=== PATIENT | male | born 1965 | race Caucasian/White ===

== ENCOUNTER 2017-05-23 11:18 | Observation (INO) | payer OTHER ==
[~2017-05-23] VITALS: Ht 185.4 cm; Wt 123.2 kg
[~2017-05-23 11:18] MED LIST: Amoxicillin500 MG PO; CEPH500 PO; CYCL10 PO; GLIP10ER PO; HYDCHL12.5 PO; LEVEMIR FL100 UNIT/1 SC; LISI20 PO; METF500 PO; Norco 5-325 Ta1 EACH PO; Percocet 10-321 EACH PO; Percocet 5-3251 EACH PO; Valium5 MG PO
[2017-05-23 11:41] LABS: BASOPHILS ABSOLUTE AUTO 0.01 K/mm3 (0.00-0.23); BASOPHILS PERCENT AUTO 0 % (0-2); EOSINOPHILS ABSOLUTE AUTO 0.08 K/mm3 (0.00-0.68); EOSINOPHILS PERCENT AUTO 1 % (0-6); Hematocrit 46.5 % (37.0-53.0); Hemoglobin 15.2 g/dL (13.5-17.5); IMMATURE GRAN ABSOLUTE AUTO 0.02 K/mm3 (0.00-0.10); IMMATURE GRAN PERCENT AUTO 0 % (0-1); LYMPHOCYTES ABSOLUTE AUTO 0.56 K/mm3 (0.84-5.20); LYMPHOCYTES PERCENT AUTO 7 % (21-46); MONOCYTES ABSOLUTE AUTO 0.45 K/mm3 (0.16-1.47); MONOCYTES PERCENT AUTO 5 % (4-13); Mean Corpuscular HGB 29.9 pg (26.0-34.0); Mean Corpuscular HGB Conc 32.7 g/dL (31.5-36.5); Mean Corpuscular Volume 92 fL (80-100); Mean Platelet Volume 10.1 fL (9.1-12.4); NEUTROPHILS ABSOLUTE AUTO 7.23 K/mm3 (1.96-9.15); NEUTROPHILS PERCENT AUTO 87 % (41-73); Platelet Count 179 K/mm3 (150-400); RDW Coefficient Variation 13.2 % (11.7-14.2); RDW Standard Deviation 44.5 fL (35.1-46.3); Red Blood Cell Count 5.08 M/mm3 (4.30-5.90); White Blood Cell Count 8.35 K/mm3 (4.00-11.30)
[2017-05-23 12:12] LABS: Alanine Aminotransfer (ALT/SGP 47 U/L (12-78); Albumin, Blood 3.6 g/dL (3.4-5.0); Albumin/Globulin Ratio 0.9 (0.8-1.8); Alk Phos 74 U/L (50-136); Anion Gap 6 mmol/L (6-16); Aspartate Aminotrans (AST/SGOT 25 U/L (12-37); Bilirubin, Total 0.5 mg/dL (0.1-1.0); Blood Urea Nitrogen 16 mg/dL (8-24); Bun/Creatinine Ratio 20.1 (12.0-20.0); CO2, Blood 28 mmol/L (21-32); Calcium, Blood 8.5 mg/dL (8.5-10.1); Chloride, Blood 104 mmol/L (98-108); Globulin, Blood 3.9 g/dL (2.2-4.0); Glomerular Filtration Rate >60 (60-); Glucose, Blood 196 mg/dL (70-99); Potassium, Blood 4.3 mmol/L (3.5-5.5); Sodium, Blood 138 mmol/L (136-145); Total Protein, Blood 7.5 g/dL (6.4-8.2); Troponin I <0.015 ng/mL (0.000-0.040)
[2017-05-23] MEDS ORDERED: ZYRTEC10 M3 PO (13:42)
[2017-05-23 18:42] LABS: CPK Creatine Kinase 79 U/L (39-308); Creatine Kinase MB 0.7 ng/mL (0.0-3.6); Creatine Kinase MB Index 0.9 (0.0-4.0); Troponin I <0.015 ng/mL (0.000-0.040)
[2017-05-23] MEDS ORDERED: ATOR40TA PO (20:10)
[2017-05-23] MEDS ORDERED: Adult Low Dose81 MG PO (20:11)
[2017-05-24 03:53] LABS: CPK Creatine Kinase 66 U/L (39-308); Creatine Kinase MB 0.5 ng/mL (0.0-3.6); Creatine Kinase MB Index 0.8 (0.0-4.0); Troponin I <0.015 ng/mL (0.000-0.040)
[2017-05-25] MEDS ORDERED: METF500 PO (10:15)
[2017-05-25] MEDS ORDERED: HYDCHL25 PO (10:16)
[2017-05-25] MEDS ORDERED: METO25ER PO (10:18)
== END 2017-05-27 11:30 | disposition home or self-care (01) ==
LOC: DELPENDDIS → ER 11:18 → MEDS 11:19 → ENPENDDIS 05-25 09:00 → MEDS 05-26 22:10
PROVIDERS: Emergency Medicine; Internal Medicine
DX: R07.9 Chest pain, unspecified (principal); E11.42 Type 2 diabetes mellitus with diabetic polyneuropathy; I10 Essential (primary) hypertension; E78.5 Hyperlipidemia, unspecified; E66.9 Obesity, unspecified; G43.909 Migraine, unspecified, not intractable, without status migrainosus; R42 Dizziness and giddiness; Z79.899 Other long term (current) drug therapy; Z79.82 Long term (current) use of aspirin; Z79.4 Long term (current) use of insulin; Z68.35 Body mass index [BMI] 35.0-35.9, adult
CPT/HCPCS: 36415; 70450; 70496; 70498; 71046; 78452; 80053; 82550; 82553; 82947; 83880; 84484; 85025; 93005; 93010; 93017; 93306; 93454; 96361; 96374; 96375; 99152; 99285; A9500; C1769; C1894; G0378; J0280; J0780; J1200; J1644; J1650; J1815; J2250; J2785; J3010; J7030; Q9967

== ENCOUNTER 2022-02-10 06:11 | Day surgery (SDC) | payer OTHER ==
[~2022-02-10] VITALS: Ht 185.4 cm; Wt 129.9 kg
[~2022-02-10 06:11] MED LIST changes: +AMOCLA875 PO; +ATOR40TA PO; +Adult Low Dose81 MG PO; +BASAGLAR K100 UNIT/3 SC; +HYDCHL25 PO; +METO25ER PO; +ONDA4ODT SL; +Prednisone50 MG PO; +ZYRTEC10 M3 PO
[2022-02-10] MEDS ORDERED: TRULICITY1.5 MG/0.1 SQ (07:05)
--- NOTE | 2022-02-10 08:11 | NUR ---
02/10/22 0811 CHERI GRAVES 0.05MG OF EPI ADDED TO 10MLS OF ROPIVACAINE 0.5% TO CREATE A LOCAL SOLUTION OF ROPIVACAINE 0.5% WITH EPI 1:200,000. LOCAL POURED ONTO STERILE FIELD FOR USE DURING CASE. 1MG OF EPI ADDED TO FIRST BAG OF 3000ML LR TO USE FOR IRRIGATION DURING SURGERY.
== END 2022-02-10 10:02 | disposition home or self-care (01) ==
LOC: ORSCSDS 06:11
PROVIDERS: Orthopaedic Surgery
PROC: 0SBC4ZZ Excision of Right Knee Joint, Percutaneous Endoscopic Approach (ICD-10-PCS; principal; 2022-02-10 07:30)
DX: S83.241A Other tear of medial meniscus, current injury, right knee, initial encounter (principal); M17.11 Unilateral primary osteoarthritis, right knee; M23.41 Loose body in knee, right knee; I10 Essential (primary) hypertension; G47.33 Obstructive sleep apnea (adult) (pediatric); E11.9 Type 2 diabetes mellitus without complications; Z79.84 Long term (current) use of oral hypoglycemic drugs; Z79.899 Other long term (current) drug therapy; E66.9 Obesity, unspecified; Z68.37 Body mass index [BMI] 37.0-37.9, adult
CPT/HCPCS: 82947; 93005; 93010; J0171; J0690; J1100; J2250; J2370; J2405; J2704; J2795; J3010; J7120